=== PATIENT | female | born 1980 | race Caucasian/White ===

== ENCOUNTER 2017-03-16 15:33 | Emergency (ER) | payer OTHER ==
[2017-03-16 15:47] VITALS: BP 111/69
--- NOTE | 2017-03-16 16:05 | UC ---
Skin Complaint HPI - History of Current Complaint Chief Complaint: UCSkin Time Seen by Provider: 03/16/17 15:58 Stated Complaint: SKIN COMPLAINT Hx Obtained From: Patient Hx Last Menstrual Period: END Jan, 2017 ?: No Onset/Duration: Sudden Onset - Got bitten by a bug last night, spreading redness since today, Lasting Days - 1, Worse Since - today Skin Exposure Onset/Duration: Days Ago - 1 Timing: Constant Onset Severity: Mild Current Severity: Moderate Location: Discrete - right inner thigy Character: Redness, Raised, Painful Aggravating: Touch Alleviating: Nothing Associated Signs & Symptoms: Positive: Tenderness. Negative: Fever, Chills, Bruising Related History: Insect Bite/Sting - Allergy/Home Medications Allergies/Adverse Reactions: Allergies Allergy/AdvReac Type Severity Reaction Status Date / Time No Known Allergies Allergy Verified 03/16/17 15:47 Review of Systems All Other Systems Reviewed And Are Negative: Yes PMH/Surg Hx/FS Hx/Imm Hx Previously Healthy: Yes Other History Of: Negative For: HIV - Surgical History Surgical History: None - Family History Known Family History: Positive: Other - mood d/o Negative: Cardiac Disease, Hypertension, Diabetes - Social History Occupation: Employed Full-time Lives: With Family Alcohol Use: None Substance Use Type: None Substance Use Comment - Amount & Last Used: none that pt reports Smoking Status (MU): Current Every Day Smoker Type: Cigarettes Amount Used/How Often: 10 a day Length of Time of Smoking/Using Tobacco: SINCE AGE 10 YRS. Have You Smoked in the Last Year: Yes Household Exposure Type: Cigarettes Cessation Counseling: Patient Advised to Stop - Immunization History Most Recent Influenza Vaccination: not this season Most Recent Tetanus Shot: unsure Most Recent Pneumonia Vaccination: never Physical Exam Triage Information Reviewed: Yes Appearance: Well-Appearing, No Pain Distress, Well-Nourished Vital Signs: Initial Vital Signs Temp 97.9 F 03/16/17 15:39 Pulse 65 03/16/17 15:39 Resp 22 03/16/17 15:39 BP 111/69 03/16/17 15:39 Pulse Ox 100 03/16/17 15:39 Vital Signs Reviewed: Yes Eyes: Positive: Conjunctiva Clear Neck exam: Normal Respiratory Exam: Normal Cardiovascular Exam: Normal Musculoskeletal Exam: Normal Neurological Exam: Normal Psychological Exam: Normal Skin: Positive: Other - swollen erythematous plaque right inner thigh 10x13 cm Course/Dx - Differential Diagnoses - Skin Complaint Differential Diagnoses: Abscess, Cellulitis, Local Allergic Reaction - Diagnoses Provider Diagnoses: Cellulitis right leg Discharge - Discharge Plan Condition: Stable Disposition: HOME Prescriptions: Cephalexin CAP* [Keflex 500 CAP*] 500 mg PO QID #28 cap Patient Education Materials: Cellulitis (ED), Cephalexin (By mouth) Additional Instructions: Smoking Cessation Tricks. 1. Cut down by 1 cigarette per day every 2-3 days. Write the number of smokes for that day on the calendar. 2. Identify triggers to smoking: after meals, on the phone, in the car, with coffee, on breaks at work, etc. 3. Formulate a plan with a behavior to replace the smoking. Fireballs in the car , doodle pad on the phone, flavored creamer for the coffee, go for a walk after a meal or on break at work. 4. For stress smokes do deep breathing relaxation. Breath deep in through the nose hold the breath in for a few seconds then breath out slowly through the mouth.
== END 2017-03-16 16:22 | disposition home or self-care (01) ==
LOC: UCCORT 15:33
DX: L03.115 Cellulitis of right lower limb (principal); F17.210 Nicotine dependence, cigarettes, uncomplicated
CPT/HCPCS: 99212; G0463

== ENCOUNTER 2018-07-08 11:24 | Emergency (ER) | payer OTHER ==
[2018-07-08 11:53] VITALS: BP 137/65
--- NOTE | 2018-07-08 12:35 | UC ---
General HPI - HPI Summary HPI Summary: felt a pop with pain to her inner R collar bone while driving a week ago. now has pain around her R shoulder that radiates into the upper arm. has occasional numbness to R hand. no hx of injury or neck pain. - History of Current Complaint Chief Complaint: UCUpperExtremity Stated Complaint: RIGHT SHOULDER PAIN Time Seen by Provider: 07/08/18 12:28 Hx Obtained From: Patient Hx Last Menstrual Period: 05/16/18 Onset/Duration: Sudden Onset Timing: Constant Pain Intensity: 8 Aggravating: movement Alleviating: arm bent at elbow and supported against her trunk lessens discomfort Associated Signs & Symptoms: Negative: Cough, Chest Pain, Fever, SOB - Allergy/Home Medications Allergies/Adverse Reactions: Allergies Allergy/AdvReac Type Severity Reaction Status Date / Time No Known Allergies Allergy Verified 07/08/18 11:48 PMH/Surg Hx/FS Hx/Imm Hx Previously Healthy: Yes Other History Of: Negative For: HIV - Surgical History Surgical History: None - Family History Known Family History: Positive: Other - mood d/o Negative: Cardiac Disease, Hypertension, Diabetes - Social History Occupation: Works From/At Home Alcohol Use: None Substance Use Type: None Substance Use Comment - Amount & Last Used: none that pt reports Smoking Status (MU): Heavy Every Day Tobacco Smoker Type: Cigarettes Amount Used/How Often: 10 a day Length of Time of Smoking/Using Tobacco: SINCE AGE 10 YRS. Have You Smoked in the Last Year: Yes Household Exposure Type: Cigarettes - Immunization History Most Recent Influenza Vaccination: not this season Most Recent Tetanus Shot: unsure Most Recent Pneumonia Vaccination: never Vaccination Up to Date: Yes Review of Systems Constitutional: Negative Skin: Negative Eyes: Negative ENT: Negative Respiratory: Negative Cardiovascular: Negative Gastrointestinal: Negative Genitourinary: Negative Motor: Negative Neurovascular: Negative Musculoskeletal: Negative Neurological: Paresthesia - R hand, Numbness - R hand Psychological: Negative Is Patient Immunocompromised?: No All Other Systems Reviewed And Are Negative: Yes Physical Exam Triage Information Reviewed: Yes Appearance: Well-Appearing Vital Signs: Initial Vital Signs Temp 98.3 F 07/08/18 11:49 Pulse 64 07/08/18 11:49 Resp 16 07/08/18 11:49 BP 137/65 07/08/18 11:49 Pulse Ox 99 07/08/18 11:49 Vital Signs Reviewed: Yes Eyes: Positive: Conjunctiva Clear ENT: Positive: Normal ENT inspection Neck: Positive: Supple, Nontender, No Lymphadenopathy, Other: - C-spine is non tender. Respiratory: Positive: Chest non-tender, Lungs clear, Normal breath sounds Cardiovascular: Positive: RRR, No Murmur Abdomen Description: Positive: Nontender, No Organomegaly, Soft Bowel Sounds: Positive: Present Musculoskeletal: Positive: Other: - RUE: mild swelling at sternoclavicular joint with tenderness but no instability.. R shoulder has no deformity, swelling or discoloration but is generaly tender. Passive rom intact but pt c/o pain. Active rom limited by shoulder pain. Area below shoulder is non tender and has full s/v/m function. Neurological: Positive: Alert Psychological: Positive: Age Appropriate Behavior Skin Exam: Normal Skin: Negative: rashes Diagnostics - Radiology No standard instances Radiology Interpretation Completed By: Radiologist - IMPRESSION: No fracture of the right shoulder is noted. Course/Dx - Course Course Of Treatment: NO FX, DISLOCATION OR CONCERN FOR INFECTION. - Differential Dx - Multi-Symptom Provider Diagnoses: ACUTE R SHOULDER PAIN. R STERNOCLAVICULAR JOINT PAIN. RADICULOPATHY R HAND Discharge - Sign-Out/Discharge Documenting (check all that apply): Patient Departure All imaging exams completed and their final reports reviewed: Yes - Discharge Plan Condition: Stable Disposition: HOME Prescriptions: Naproxen [Naprosyn 500 mg tab] 500 mg PO BID 7 Days #14 tablet Patient Education Materials: Shoulder Pain (ED), Paresthesia (ED) Referrals: Stas Knight MD [Medical Doctor] - As Soon As Possible Additional Instructions: SLING DURING DAY FOR COMFORT BUT REMOVE FOR PASSIVE PENDULAR SWINGS SHOWN 2- 3 TIMES DAILY. REMOVE SLING AT BEDTIME. - Billing Disposition and Condition Condition: STABLE Disposition: Home
--- NOTE | 2018-07-08 13:04 | RAD ---
Indication: Right shoulder pain. 4 views right shoulder demonstrates no fracture or dislocation. No other bone or joint abnormality is identified. IMPRESSION: No fracture of the right shoulder is noted.
== END 2018-07-08 13:24 | disposition home or self-care (01) ==
LOC: UCCORT 11:24
DX: M25.511 Pain in right shoulder (principal); M54.10 Radiculopathy, site unspecified; F17.210 Nicotine dependence, cigarettes, uncomplicated
CPT/HCPCS: 99213; G0463